=== PATIENT | male | born 1985 | race Caucasian/White ===

== ENCOUNTER 2017-12-06 09:57 | Emergency (ER) | payer SELFPAY ==
[2017-12-06] MEDS ORDERED: Albuterol 2.5 MG/3 ML NEB.SOL* (0.083%) INH ONE (12:14)
[2017-12-06] MEDS ORDERED: Ipratropium 0.5MG/2.5ML NEB* 0.5 MG/2.5 ML NEB.SOLN INH ONE (12:15)
--- NOTE | 2017-12-06 12:23 | UC ---
Bhavik Nascimento Elizabeth, scribed for Ivania Harmon MD on 12/06/17 at 1213 . HPI Febrile Illness - HPI Summary HPI Summary: This patient is a 32 year old M presenting to [facility] with a chief complaint of intermittent fever since 6 days ago. The patient reports that he pulled 2 ticks off of himself 10 days ago, one of which he thinks may have been on him for possibly 12 hours but may have been longer. Pt states one tick was "big". The patient also reports body aches, fatigue and headache. He rates the pain 7/10 in severity. Symptoms aggravated by nothing. S. Patient reports lightheadedness , chills, minor congestion, chest tightness, fatigue, nonproductive cough, headache, myalgia, joint pain.No rash. Patient denies exposure to anyone sick, rash, diarrhea and abd pain. The patient reports that that he slept for 14 hours on Monday night, which is very unusual for him. He notes that he has been taking Dayquil and Aleve but they have not alleviated his symptoms. He reports taking Aleve earlier this morning for tactile temperature Pt's medications reviewed this visit - History of Current Complaint Chief Complaint: UCGeneralIllness Time Seen by Provider: 12/06/17 11:55 Hx Obtained From: Patient Onset/Duration: Started Days Ago - 6 days, Still Present Timing: Intermittent Initial Severity: Mild Current Severity: Moderate Pain Intensity: 7 Pain Scale Used: 0-10 Numeric Aggravating Factors: Nothing Alleviating Factors: Nothing Associated Signs and Symptoms: Chills, Cough - nonproductive cough, Headache, Joint Pain, Myalgia, Sore Throat, Stiff Neck, Other: - fatigue, lightheadedness - Allergy/Home Medications Allergies/Adverse Reactions: Allergies Allergy/AdvReac Type Severity Reaction Status Date / Time No Known Allergies Allergy Verified 12/06/17 10:44 Home Medications: Home Medications D-Methorphan/PE/Acetaminophen [Day Multi-Symp Flu-Severe Cold] 1 dose PO DAILY 12/06/17 [History Confirmed 12/06/17] Naproxen Sodium [Aleve] 2 tab PO DAILY 12/06/17 [History Confirmed 12/06/17] PMH/Surg Hx/FS Hx/Imm Hx Previously Healthy: Yes - Surgical History Surgical History: None - Family History Known Family History: Positive: None - patient denies relevant FHx - Social History Occupation: Employed Part-time Lives: With Family Alcohol Use: Rare Substance Use Type: Marijuana Smoking Status (MU): Light Every Day Tobacco Smoker Type: Cigarettes - Immunization History Most Recent Tetanus Shot: UTD Review of Systems Constitutional: Fever, Chills, Fatigue Skin: Negative - NEGATIVE RASH ENT: Sore Throat, Sinus Congestion Respiratory: Cough - nonproductive cough Cardiovascular: Chest Pain - chest tightness Musculoskeletal: Arthralgia, Myalgia Neurological: Headache All Other Systems Reviewed And Are Negative: Yes Physical Exam - Summary Physical Exam Summary: Vital Signs Reviewed: Yes genera: alert, tired appearing Eye Exam: GLENDY.. EOM intact and full. no injection ENT: TM x2 clear. mmoist no exudate, no erythema uvula midline Neck exam: Full AROM, no lymphadenopathy, supple Respiratory: scattered wheeze, intermittent cough + BS throughout no rhonci Cardiovascular: RRR, No Murmur, rubs CBT < 2 sec Abdomen Description: No Organomegaly, Soft. nt/ndl no guarding. no CVA b/l + BS Musculoskeletal: Positive: AROM x 4, normal strength Neurological: A+Ox3 Psychological: normal Response, appropriate Skin Exam: Normal, no rash Triage Information Reviewed: Yes Vital Signs: Initial Vital Signs Temp 97.3 F 12/06/17 10:39 Pulse 81 12/06/17 10:39 Resp 18 12/06/17 10:39 BP 130/83 12/06/17 10:39 Pulse Ox 99 12/06/17 10:39 Re-Evaluation - Re-Evaluation 1st re-eval Re-Evaluation Time: 12:55 Change: Improved Comment: The patient reports that his lungs now feel clear and his chest no longer feels tight after receiving the breathing tx. wheeze resolved Course/Dx - Course Course Of Treatment: Pt with body aches, headache, intermittent fever, myaglia, cough and wheeze. pt removed 2 ticks approx 7 days prior to illness developement. no rash. d/w pt possibility of lyme exposure. Pt without rash - too soon to test IgG. Will give neb ad reassess. will treat for presumtive line. work note. reassessment. return precautions - Diagnoses Clinic Provider Diagnoses: lyme disease. febrile illness. myalgia Discharge - Sign-Out/Discharge Documenting (check all that apply): Discharge/Admit/Transfer - Discharge Plan Condition: Stable Disposition: HOME Prescriptions: Acetaminophen 650 mg PO Q6HR #50 tablet Albuterol HFA INHALER* [Ventolin HFA Inhaler*] 1 puff INH Q4H PRN #1 mdi PRN Reason: wheeze DOXYcycline CAP(*) [DOXYcycline 100MG CAP(*)] 100 mg PO BID #28 cap Patient Education Materials: Tick Bite (ED), Fever in Adults (ED) Forms: *Gen. Provider Communication, *Work Release Referrals: [facility] [Outside] Additional Instructions: - The doctor that evaluated you is treating you presumptively for lyme disease given your recent tick bite and development of fever, body aches and other symptoms - Take medications as prescribed until gone - Okay to take Alleve 2 times a day for fever and discomfort. Okay to take Tylenol every 6 hours as needed for pain or fever. Take both with food. Do NOT take for more than 6-7 days - stay well hydrated. Drink plenty for non-alcoholic, non-caffinated beverages - Use inhaler, 2 puffs every 4 hours as needed for cough and wheeze - get plenty of restful sleep -contact the physician referral center to schedule a follow-up appointment - Billing Disposition and Condition Condition: STABLE Disposition: HOME The documentation as recorded by the Bhavik francisco Elizabeth accurately reflects the service I personally performed and the decisions made by , Ivania Harmon MD.
== END 2017-12-06 13:14 | disposition home or self-care (01) ==
LOC: UCEAST 09:57
DX: A69.20 Lyme disease, unspecified (principal); R50.9 Fever, unspecified; M79.1 Myalgia; M25.50 Pain in unspecified joint; R07.89 Other chest pain; F17.210 Nicotine dependence, cigarettes, uncomplicated
CPT/HCPCS: 99202; G0463